=== PATIENT | male | born 1965 | race Caucasian/White ===

== ENCOUNTER 2016-11-04 13:16 | Day surgery (SDC) | payer BC ==
--- NOTE | ~2016-11-04 | EGD ---
EGD REPORT [facility] [address] [place]. [address] NAME: AB RAMIREZ : 63 STATUS : REG [facility] PAT#: [id number] AGE: 51 ADM/REG DATE : 11/04/16 MR#: [id number] REPORT SERV DATE: 11/04/16 DICTATED BY: RAFAEL BARAJAS DATE: 11/04/16 REPORT STATUS : Draft TRANSCRIBED BY: [employer] DATE: 11/04/16 Endoscopy Center Patient Name: Ab Ramirez Date of : 1965 Attending MD: JOHN BARAJAS MD Procedure Date No Time: 11/04/2016 Procedure: Upper GI endoscopy Indications: Dysphagia, Gastro-esophageal reflux disease Referring MD: AB COATES Medicines: See the Anesthesia note for documentation of the administered medications Complications: No immediate complications. Estimated blood loss: Minimal. Procedure: Pre-Anesthesia Assessment: - ASA Grade Assessment: II - A patient with mild systemic disease. - Prior to the procedure, a History and Physical was performed, and patient medications and allergies were reviewed. The patient's tolerance of previous anesthesia was also reviewed. The risks and benefits of the procedure and the sedation options and risks were discussed with the patient. All questions were answered, and informed consent was obtained. Prior Anticoagulants: The patient has taken no previous anticoagulant or antiplatelet agents. After reviewing the risks and benefits, the patient was deemed in satisfactory condition to undergo the procedure. After obtaining informed consent, the endoscope was passed under direct vision. Throughout the procedure, the patient's blood pressure, pulse, and oxygen saturations were monitored continuously. The GIF H190 [id number] was introduced through the mouth, and advanced to the second part of duodenum. The upper GI endoscopy was accomplished without difficulty. The patient tolerated the procedure well. Findings: The examined duodenum was normal. The entire examined stomach was normal. A small hiatus hernia was present. LA Grade A (one or more mucosal breaks less than 5 mm, not extending between tops of 2 mucosal folds) esophagitis with no bleeding was found at the gastroesophageal junction. Biopsies were taken with a cold forceps for histology. A benign-appearing, intrinsic mild stenosis was found at the EGD REPORT [address] [address] NAME: AB RAMIREZ : [birth year] STATUS : REG [facility] PAT#: [id number] AGE: 51 ADM/REG DATE : 11/04/16 MR#: [id number] REPORT SERV DATE: 11/04/16 DICTATED BY: RAFAEL BARAJAS DATE: 11/04/16 REPORT STATUS : Draft TRANSCRIBED BY: [employer] DATE: 11/04/16 gastroesophageal junction and was traversed. A guidewire was placed and the scope was withdrawn. Dilation was performed with a Savary dilator with no resistance at 45 Fr, no resistance at 51 Fr and mild resistance at 57 Fr. Estimated blood loss was minimal. Impression: - Normal examined duodenum. - Normal stomach. - Hiatus hernia. - LA Grade A reflux esophagitis. Biopsied. - Benign-appearing esophageal stricture. Dilated. Recommendation: - Patient has a contact number available for emergencies. The signs and symptoms of potential delayed complications were discussed with the patient. Return to normal activities tomorrow. Written discharge instructions were provided to the patient. - Regular diet. - Discharge patient to home. - Continue present medications. - Use Prilosec (omeprazole) 40 mg PO daily indefinitely. - Use Zantac (ranitidine) 300 mg PO daily indefinitely. - Await pathology results. Procedure Code(s): --- Professional --- 93157, Esophagogastroduodenoscopy, flexible, transoral; with insertion of guide wire followed by passage of dilator(s) through esophagus over guide wire 54513, Esophagogastroduodenoscopy, flexible, transoral; with biopsy, single or multiple Diagnosis Code(s): --- Professional --- K44.9, Diaphragmatic hernia without obstruction or gangrene K21.0, Gastro-esophageal reflux disease with esophagitis K22.2, Esophageal obstruction R13.10, Dysphagia, unspecified CPT copyright 2013 [employer]. All rights reserved. The codes documented in this report are preliminary and upon bee keeper review may be revised to meet current compliance requirements. JOHN BARAJAS MD 11/04/2016 3:59 PM This report has been signed electronically. EGD REPORT [facility] [address] [place]. [address] NAME: AB RAMIREZ : [birth year] STATUS : REG [facility] PAT#: [id number] AGE: 51 ADM/REG DATE : 11/04/16 MR#: [id number] REPORT SERV DATE: 11/04/16 DICTATED BY: RAFAEL BARAJAS DATE: 11/04/16 REPORT STATUS : Draft TRANSCRIBED BY: [employer] DATE: 11/04/16 Number of Addenda: 0 Note Initiated On: 11/04/2016 3:41 PM Scope Withdrawal Time 0 hours 0 minutes 0 seconds [address] [place], [place] [address]
--- NOTE | ~2016-11-04 | EGD ---
EGD REPORT [facility] [address] [place]. [address] NAME: AB RAMIREZ : 63 STATUS : REG [facility] [place] PAT#: [id number] AGE: 51 ADM/REG DATE : 11/04/16 MR#: [id number] REPORT SERV DATE: 11/04/16 DICTATED BY: RAFAEL BARAJAS DATE: 11/04/16 REPORT STATUS : Draft TRANSCRIBED BY: [employer] DATE: 11/04/16 Endoscopy Center Patient Name: Ab Ramirez Date of : 1965 Attending MD: JOHN BARAJAS MD Procedure Date No Time: 11/04/2016 Procedure: Flexible Sigmoidoscopy Indications: f/u of rectal carcinoid Referring MD: AB COATES Medicines: See the Anesthesia note for documentation of the administered medications Complications: No immediate complications. Estimated blood loss: None. Procedure: Pre-Anesthesia Assessment: - ASA Grade Assessment: II - A patient with mild systemic disease. - Prior to the procedure, a History and Physical was performed, and patient medications and allergies were reviewed. The patient's tolerance of previous anesthesia was also reviewed. The risks and benefits of the procedure and the sedation options and risks were discussed with the patient. All questions were answered, and informed consent was obtained. Prior Anticoagulants: The patient has taken no previous anticoagulant or antiplatelet agents. After reviewing the risks and benefits, the patient was deemed in satisfactory condition to undergo the procedure. After obtaining informed consent, the endoscope was passed under direct vision. Throughout the procedure, the patient's blood pressure, pulse, and oxygen saturations were monitored continuously. The GIF H190 [id number] was introduced through the anus and advanced to the rectosigmoid junction. The flexible sigmoidoscopy was accomplished without difficulty. The patient tolerated the procedure well. The quality of the bowel preparation was adequate. Findings: A single small scar was found in the rectum. This was biopsied with a cold forceps for histology. Non-bleeding internal hemorrhoids were found during retroflexion and were Grade I (internal hemorrhoids that do not prolapse). Impression: - Scar in the rectum. Biopsied. - Non-bleeding internal hemorrhoids. EGD REPORT [address] [address] NAME: AB RAMIREZ : [birth year] STATUS : REG [facility] [place] PAT#: [id number] AGE: 51 ADM/REG DATE : 11/04/16 MR#: [id number] REPORT SERV DATE: 11/04/16 DICTATED BY: RAFAEL BARAJAS DATE: 11/04/16 REPORT STATUS : Draft TRANSCRIBED BY: [employer] DATE: 11/04/16 Recommendation: - Discharge patient to home. - Regular diet. - Continue present medications. - Await pathology results. - Return to my office in 6 weeks. Procedure Code(s): --- Professional --- 38489, 51, Sigmoidoscopy, flexible; with biopsy, single or multiple Diagnosis Code(s): --- Professional --- K62.89, Other specified diseases of anus and rectum K64.0, First degree hemorrhoids CPT copyright 2013 [employer]. All rights reserved. The codes documented in this report are preliminary and upon tubing assembler review may be revised to meet current compliance requirements. JOHN BARAJAS MD 11/04/2016 4:06 PM This report has been signed electronically. Number of Addenda: 0 Note Initiated On: 11/04/2016 3:37 PM Scope Withdrawal Time 0 hours 0 minutes 0 seconds [address] [place] [address]
[~2016-11-04 13:16] MED LIST: NAP500 PO; SKELAXIN8 PO; TUMSROLL PO
[2016-11-09] MEDS ORDERED: RANITIDINE300 MG PO (12:22)
[2016-11-09] MEDS ORDERED: PRILOSEC40 MG PO (12:23)
[2016-11-09] MEDS ORDERED: METHOC500B PO (12:23)
== END 2016-11-04 23:59 | disposition home or self-care (01) ==
LOC: DMU 13:16
PROVIDERS: Internal Medicine Gastroenterology
PROC: 0DB48ZX Excision of Esophagogastric Junction, Via Natural or Artificial Opening Endoscopic, Diagnostic (ICD-10-PCS; principal; 2016-11-04 14:30)
PROC: 0D748ZZ Dilation of Esophagogastric Junction, Via Natural or Artificial Opening Endoscopic (ICD-10-PCS; 2016-11-04 14:30)
PROC: 0DBP8ZX Excision of Rectum, Via Natural or Artificial Opening Endoscopic, Diagnostic (ICD-10-PCS; 2016-11-04 14:30)
DX: D3A.026 Benign carcinoid tumor of the rectum (principal); K21.0 Gastro-esophageal reflux disease with esophagitis; K64.0 First degree hemorrhoids; K22.2 Esophageal obstruction; K44.9 Diaphragmatic hernia without obstruction or gangrene; Z98.890 Other specified postprocedural states
CPT/HCPCS: 88305; 88342

== ENCOUNTER 2016-11-11 07:49 | Day surgery (SDC) | payer BC ==
--- NOTE | ~2016-11-11 | EGD ---
EGD REPORT [facility] [address] [place]. [address] NAME: AB RAMIREZ : [birth year] STATUS : REG [facility] [place] PAT#: [id number] AGE: 51 ADM/REG DATE : 11/11/16 MR#: [id number] REPORT SERV DATE: 11/11/16 DICTATED BY: RAFAEL BARAJAS DATE: 11/11/16 REPORT STATUS : Draft TRANSCRIBED BY: [facility] DATE: 11/11/16 Endoscopy Center Patient Name: Ab Ramirez Date of : 1965 Attending MD: JOHN BARAJAS MD Procedure Date No Time: 11/11/2016 Procedure: Flexible Sigmoidoscopy Indications: Rectal carcinoid Referring MD: AB COATES Medicines: See the Anesthesia note for documentation of the administered medications Complications: No immediate complications. Estimated blood loss: None. Procedure: Pre-Anesthesia Assessment: - ASA Grade Assessment: II - A patient with mild systemic disease. - Prior to the procedure, a History and Physical was performed, and patient medications and allergies were reviewed. The patient's tolerance of previous anesthesia was also reviewed. The risks and benefits of the procedure and the sedation options and risks were discussed with the patient. All questions were answered, and informed consent was obtained. Prior Anticoagulants: The patient has taken no previous anticoagulant or antiplatelet agents. After reviewing the risks and benefits, the patient was deemed in satisfactory condition to undergo the procedure. After obtaining informed consent, the endoscope was passed under direct vision. Throughout the procedure, the patient's blood pressure, pulse, and oxygen saturations were monitored continuously. The GIF H190 [id number] was introduced through the anus and advanced to the rectosigmoid junction. The flexible sigmoidoscopy was accomplished without difficulty. The patient tolerated the procedure well. The quality of the bowel preparation was good. Findings: The perianal and digital rectal examinations were normal. A single (solitary) ulcer was found in the distal rectum. at site of scar where biopsy was done Area was successfully injected with 6 mL saline for drug delivery. This area was resected by polypectomy Area was successfully injected with 1 mL Spot (carbon black) for drug delivery. Area of polypectomy showed a small vessel and so this was cautrized Impression: - A single (solitary) ulcer in the distal rectum. EGD REPORT [address] [address] NAME: AB RAMIREZ : [birth year] STATUS : REG [facility]#: [id number] AGE: 51 ADM/REG DATE : 11/11/16 MR#: [id number] REPORT SERV DATE: 11/11/16 DICTATED BY: RAFAEL BARAJAS DATE: 11/11/16 REPORT STATUS : Draft TRANSCRIBED BY: [employer] DATE: 11/11/16 Injected. Recommendation: - Discharge patient to home. - Discharge patient to home. - Regular diet. - Continue present medications. - Await pathology results. Procedure Code(s): --- Professional --- 27787, 51, Sigmoidoscopy, flexible; with directed submucosal injection(s), any substance Diagnosis Code(s): --- Professional --- K62.6, Ulcer of anus and rectum CPT copyright 2013 [employer] [place] [employer]. All rights reserved. The codes documented in this report are preliminary and upon autocad draftsman review may be revised to meet current compliance requirements. JOHN BRAAJAS MD 11/11/2016 9:29 AM This report has been signed electronically. Number of Addenda: 0 Note Initiated On: 11/11/2016 8:59 AM Scope Withdrawal Time 0 hours 0 minutes 0 seconds [address] [place] [address]
--- NOTE | ~2016-11-11 | EGD ---
EGD REPORT [facility] [address] [place]. [address] NAME: AB RAMIREZ : 63 STATUS : REG [facility] [place] PAT#: [id number] AGE: 51 ADM/REG DATE : 11/11/16 MR#: [id number] REPORT SERV DATE: 11/11/16 DICTATED BY: RAFAEL BARAJAS DATE: 11/11/16 REPORT STATUS : Draft [facility]: [facility] DATE: 11/11/16 Endoscopy Center Patient Name: Ab Ramirez Date of : 1965 Attending MD: JOHN BARAJAS MD Procedure Date No Time: 11/11/2016 Procedure: Flexible Sigmoidoscopy Indications: Rectal carcinoid Referring MD: AB COATES Medicines: See the Anesthesia note for documentation of the administered medications Complications: No immediate complications. Estimated blood loss: None. Procedure: Pre-Anesthesia Assessment: - ASA Grade Assessment: II - A patient with mild systemic disease. - Prior to the procedure, a History and Physical was performed, and patient medications and allergies were reviewed. The patient's tolerance of previous anesthesia was also reviewed. The risks and benefits of the procedure and the sedation options and risks were discussed with the patient. All questions were answered, and informed consent was obtained. Prior Anticoagulants: The patient has taken no previous anticoagulant or antiplatelet agents. After reviewing the risks and benefits, the patient was deemed in satisfactory condition to undergo the procedure. After obtaining informed consent, the endoscope was passed under direct vision. Throughout the procedure, the patient's blood pressure, pulse, and oxygen saturations were monitored continuously. The GIF H190 [id number] was introduced through the anus and advanced to the rectosigmoid junction. The flexible sigmoidoscopy was accomplished without difficulty. The patient tolerated the procedure well. The quality of the bowel preparation was good. Findings: The perianal and digital rectal examinations were normal. A single (solitary) ulcer was found in the distal rectum. at site of scar where biopsy was done Area was successfully injected with 6 mL saline for drug delivery. This area was resected by polypectomy Area was successfully injected with 1 mL Spot (carbon black) for drug delivery. Area of polypectomy showed a small vessel and so this was cautrized Impression: - A single (solitary) ulcer in the distal rectum. EGD REPORT [address] [address] NAME: AB RAMIREZ : [birth year] STATUS : REG [facility]#: [id number] AGE: 51 ADM/REG DATE : 11/11/16 MR#: [id number] REPORT SERV DATE: 11/11/16 DICTATED BY: RAFAEL BARAJAS DATE: 11/11/16 REPORT STATUS : Draft TRANSCRIBED BY: [employer] DATE: 11/11/16 Injected. Recommendation: - Discharge patient to home. - Discharge patient to home. - Regular diet. - Continue present medications. - Await pathology results. Procedure Code(s): --- Professional --- 19885, 51, Sigmoidoscopy, flexible; with directed submucosal injection(s), any substance Diagnosis Code(s): --- Professional --- K62.6, Ulcer of anus and rectum CPT copyright 2013 [employer]. All rights reserved. The codes documented in this report are preliminary and upon nutritional assistant review may be revised to meet current compliance requirements. JOHN BARAJAS MD 11/11/2016 9:29 AM This report has been signed electronically. Number of Addenda: 0 Note Initiated On: 11/11/2016 8:59 AM Scope Withdrawal Time 0 hours 0 minutes 0 seconds [address] [place] [address]
[~2016-11-11 07:49] MED LIST changes: +METHOC500B PO; +PRILOSEC40 MG PO; +RANITIDINE300 MG PO
== END 2016-11-11 23:59 | disposition home health service (06) ==
LOC: DMU 07:49
PROVIDERS: Internal Medicine Gastroenterology
PROC: 0DBP8ZX Excision of Rectum, Via Natural or Artificial Opening Endoscopic, Diagnostic (ICD-10-PCS; principal; 2016-11-11 09:30)
PROC: 3E0H8GC Introduction of Other Therapeutic Substance into Lower GI, Via Natural or Artificial Opening Endoscopic (ICD-10-PCS; 2016-11-11 09:30)
DX: K62.6 Ulcer of anus and rectum (principal); K21.9 Gastro-esophageal reflux disease without esophagitis; Z86.010 Personal history of colon polyps; Z98.890 Other specified postprocedural states
CPT/HCPCS: 88305; 88341; 88342; 88360

== ENCOUNTER 2017-01-11 09:08 | Day surgery (SDC) | payer BC ==
--- NOTE | ~2017-01-11 | EGD ---
EGD REPORT [facility] [address] [place]. [address] NAME: AB RAMIREZ : 63 STATUS : REG [facility]#: [id number] AGE: 51 ADM/REG DATE : 01/11/17 MR#: [id number] REPORT SERV DATE: 01/11/17 DICTATED BY: ARIANNE COBOS DATE: 01/11/17 REPORT STATUS : Draft [facility]: [facility] DATE: 01/11/17 Endoscopy Center Patient Name: Ab Ramirez Date of : 1965 Attending MD: ARIANNE COBOS, Procedure Date No Time: 01/11/2017 Procedure: Lower EUS Indications: Rectal deformity found on endoscopy; subepithelial tumor versus extrinsic compression. History of rectal carcinoid. Referring MD: JOHN MANRIQUE MD Medicines: Monitored Anesthesia Care Complications: No immediate complications. Estimated blood loss: None. Procedure: Pre-Anesthesia Assessment: - ASA Grade Assessment: II - A patient with mild systemic disease. After obtaining informed consent, the endoscope was passed under direct vision. Throughout the procedure, the patient's blood pressure, pulse, and oxygen saturations were monitored continuously. The Endoscope was introduced through the anus and advanced to the rectosigmoid junction for ultrasound. The PCF [id number] was introduced through the anus and advanced to the rectosigmoid junction for ultrasound. Findings: Endoscopic Finding : A single medium-sized scar was found in the distal rectum. A tattoo was seen in the distal rectum. Endosonographic Finding : The rectum was normal. The perirectal space was normal. The anal canal was normal. No lymph nodes were seen in the perirectal region. Impression: - Scar in the distal rectum. - A tattoo was seen in the distal rectum. - Endosonographic images of the rectum were unremarkable. - Endosonographic images of the perirectal space were unremarkable. - Endosonographic images of the anal canal were unremarkable. - No lymph nodes were seen in the perirectal region during endosonographic examination. EGD REPORT [facility] [address] [facility] [place]. [address] NAME: AB RAMIREZ : [birth year] STATUS : REG [facility]#: [id number] AGE: 51 ADM/REG DATE : 01/11/17 MR#: [id number] REPORT SERV DATE: 01/11/17 DICTATED BY: ARIANNE COBOS DATE: 01/11/17 REPORT STATUS : Draft TRANSCRIBED BY: [employer] DATE: 01/11/17 Recommendation: - Return to previous diet. - Continue present medications. - Return to referring physician. Procedure Code(s): --- Professional --- 70887, Sigmoidoscopy, flexible; with endoscopic ultrasound examination Diagnosis Code(s): --- Professional --- K62.89, Other specified diseases of anus and rectum CPT copyright 2013 [employer]. All rights reserved. The codes documented in this report are preliminary and upon insurance coder review may be revised to meet current compliance requirements. ARIANNE COBOS, 01/11/2017 11:27 AM Number of Addenda: 0 Note Initiated On: 01/11/2017 10:22 AM Scope Withdrawal Time 0 hours 0 minutes 0 seconds [address] [facility] [place] [address]
== END 2017-01-11 23:59 | disposition home or self-care (01) ==
LOC: DMU 09:08
PROVIDERS: Internal Medicine Gastroenterology
PROC: 0DJD8ZZ Inspection of Lower Intestinal Tract, Via Natural or Artificial Opening Endoscopic (ICD-10-PCS; principal; 2017-01-11 09:00)
DX: K62.89 Other specified diseases of anus and rectum (principal); I45.10 Unspecified right bundle-branch block; M54.9 Dorsalgia, unspecified; K21.9 Gastro-esophageal reflux disease without esophagitis; Z85.040 Personal history of malignant carcinoid tumor of rectum; Z79.1 Long term (current) use of non-steroidal anti-inflammatories (NSAID); Z79.899 Other long term (current) drug therapy; Z98.890 Other specified postprocedural states
CPT/HCPCS: 76872